=== PATIENT | male | born 1970 | race Caucasian/White ===

== ENCOUNTER 2017-02-17 08:12 | Emergency (ER) | payer OTHER ==
--- NOTE | ~2017-02-17 | CR72 ---
[facility] A Service of [facility] RADIOLOGY TEXT RESULTS PATIENT: GINA FORD LOCATION: [facility] : 74 UNIT #: [id number] AGE: [address]: Norah Teran SEX: M ORDER DR: [id number] [facility] [address] [facility]. [place], [place] [address] [id number] E MR#: [id number] Acc #: [id number] NAME: GINA FORD : 1970 SEX: M STUDY DATE/TIME: 02/17/2017 8:10 UNIT: [facility] ROOM: STUDY DESCRIPTION: CR Chest Single View Portable Attending Physician: Norah Teran Pa-C Ordering Physician: Norah Teran Pa-C Primary Care Physician: Primary Care Physician No MEDICAL IMAGING REPORT This report is preliminary unless electronic signature is present EXAM AP radiograph chest, 02/17/2017 HISTORY Chest pain, short of air that began today. FINDINGS AP radiograph of the chest is presented. Imaged obtained in lordotic projection. The heart is mildly enlarged. This may in part be artifactual and related to AP lordotic projection. Lungs are moderately well inflated. Given projection, there is no clear indication of acute infectious or inflammatory disease, pleural effusion or pneumothorax. No suspicious nodule. The bony structures show no acute abnormality. Mildly tortuous descending thoracic aorta. Dictated by... Justino Dillon M.D. THIS IS AN ELECTRONICALLY VERIFIED REPORT Justino Dillon M.D. at 02/18/2017 5:55 PM [place] TD: 02/17/2017 10:40 JOB #: [id number] MEDICAL IMAGING REPORT Page 1 of 1 COPY
--- NOTE | ~2017-02-17 | EKG ---
PATIENT: GINA FORD UNIT #: [id number] Ventricular Rate: 67 BPM Atrial Rate: 67 BPM P-R Interval: 168 ms QRS Duration: 86 ms Q-T Interval: 392 ms QTC Calculation(Bezet): 414 ms P [place]: 12 degrees Calculated R [place]: 62 degrees Calculated T [place]: -11 degrees Diagnosis Line: Normal sinus rhythm Diagnosis Line: Inferior infarct , age undetermined with Diagnosis Line: repolarization abnormality Diagnosis Line: Abnormal ECG Diagnosis Line: No previous ECGs available Diagnosis Line: Confirmed by JUSTO TATE MD ([id number]) on 02/17/2017 Diagnosis Line: 9:22:21 PM INTERPRETING MD: BEBETO GORDON
[2017-02-17 08:32] LABS: BASOPHIL# 0.1 X10e3 (0-0.3); BASOPHIL% 0.7 % (0-2.5); EOSINOPHIL# 0.3 X10e3 (0-0.7); EOSINOPHIL% 2.6 % (0.0-7.0); HEMOGLOBIN 14.1 gm/dL (13.0-16.0); LYMPHOCYTE# 3.2 X10e3 (1.0-3.5); LYMPHOCYTE% 30.9 % (17.0-45.0); MEAN CELL VOLUME 79.9 FL (83-96); MEAN CORPUSCULAR HEMOGLOBIN 26.2 PG (28-34); MEAN CORPUSCULAR HGB CONC 32.8 g/dL (30-36); MEAN PLATELET VOLUME 10.1 FL (6.5-11.5); MONOCYTE# 0.9 X10e3 (0-1.0); MONOCYTE% 8.6 % (3.0-12.0); NEUTROPHIL# 5.9 X10e3 (1.5-7.1); NEUTROPHIL% 57.2 % (40-75); PLATELET COUNT 203 X10e3 (140-420); RED BLOOD COUNT 5.38 X10e (3.90-5.60); RED CELL DISTRIBUTION WIDTH 13.5 % (11.0-15.5); WHITE BLOOD COUNT 10.3 X10e3 (4.0-10.5)
[2017-02-17 08:34] LABS: DIFF IND NO
[2017-02-17 08:45] LABS: POC - CKMB <1.0 ng/mL (0.0-7.9); POC - TROPONIN <0.05 ng/mL (<=0.05)
[2017-02-17 08:59] LABS: ALBUMIN SERUM 4.1 g/dL (3.5-5.0); BILIRUBIN, DIRECT 0.1 mg/dL (0.0-0.2); BILIRUBIN,INDIRECT 0.6 mg/dL (0.0-0.9); BILIRUBIN,TOTAL 0.7 mg/dL (0.2-2.0); BUN/CREATININE RATIO 17.5; CALCIUM SERUM 8.5 mg/dL (8.4-10.2); CREATININE SERUM 0.8 mg/dL (0.6-1.4); GLOM FILT RATE Estimated 108.7 mL/min (>60); POTASSIUM 3.6 mmol/L (3.5-5.1); PROTEIN TOTAL SERUM 7.5 g/dL (6.0-8.3)
[2017-02-17 09:42] LABS: URINE SOURCE CLEAN CATCH
[2017-02-17 09:49] LABS: URINE APPEARANCE CLEAR; URINE BILIRUBIN NEG (NEG); URINE BLOOD NEG (NEG); URINE COLOR YELLOW; URINE GLUCOSE NEG (NEG); URINE KETONE NEG (NEG); URINE LEUKOCYTE ESTERASE NEG (NEG); URINE NITRATE NEG (NEG); URINE PH 5.5 (5-8); URINE PROTEIN NEG (NEG); URINE SPECIFIC GRAVITY 1.022 (1.003-1.035); URINE UROBILINOGEN 0.2 MG/DL (NEG)
[2017-02-17 09:54] LABS: CULTURE INDICATED? NO
== END 2017-02-17 11:45 | disposition home or self-care (01) ==
LOC: CED 08:12
PROVIDERS: Physician Assistant Medical
DX: R73.9 Hyperglycemia, unspecified (principal); R51 Headache; Z87.442 Personal history of urinary calculi
CPT/HCPCS: 36415; 71010; 80048; 80076; 81003; 82553; 82947; 84484; 85025; 93005; 99284

== ENCOUNTER 2017-02-26 23:50 | Emergency (ER) | payer OTHER ==
--- NOTE | ~2017-02-26 | CT4 ---
[facility] A Service of [facility] RADIOLOGY TEXT RESULTS PATIENT: GINA FORD LOCATION: [facility] : 74 UNIT #: [id number] AGE: [address]: Evelin Paz APRN SEX: M ORDER DR: [id number] [facility] [address] [facility]. [place], [place] [address] [id number] E MR#: [id number] Acc #: [id number] NAME: GINA FORD : 1970 SEX: M STUDY DATE/TIME: 02/27/2017 0110 UNIT: [facility] ROOM: STUDY DESCRIPTION: CT Abd and Pelv Wo Cont Attending Physician: Evelin Paz A.P.R.N. Ordering Physician: Evelin Paz A.P.R.N. Primary Care Physician: No Primary Care Physician MEDICAL IMAGING REPORT This report is preliminary unless electronic signature is present EXAM CT abdomen and pelvis, 02/27 at 0110 hours. INDICATION Left flank pain that started this morning. History of kidney stones. TECHNIQUE Axial noncontrast images were obtained through the abdomen and pelvis. Multiplanar reformats were obtained. This CT exam was performed with one or more of the following radiation dose reduction techniques: automatic exposure control, adjustment of mA and/or kV according to patient size, and iterative reconstruction. COMPARISON STUDIES Comparison is made with 09/24/2016. FINDINGS ABDOMEN: There is some mild atelectasis or scarring in the right middle lobe and lingula. There is a 4.5 mm left lower lobe subpleural nodule. In the absence of risk factors for malignancy, consider chest CT for followup in 12 months. Gallbladder is unremarkable. There is fatty infiltration of the liver. Left nephrostomy tube has been removed. There is a left renal cyst. There is a nonobstructing stone in the lower pole of the left kidney measuring 6 mm in size. No ureteral stones are seen on either side and there is no hydronephrosis. The unenhanced solid organs are otherwise normal. The unopacified GI tract is normal. PELVIS: There are no lower ureteral stones. The bladder is normal. There is no free fluid. The unopacified GI tract, including the appendix, is normal. There are bilateral L5 pars defects. IMPRESSION [facility]. [facility] A Service of [facility] RADIOLOGY TEXT RESULTS PATIENT: GINA FORD LOCATION: [place] : 74 UNIT #: [id number] AGE: [address]: Evelin Paz APRN SEX: M ORDER DR: 1. No ureteral stones on either side and no hydronephrosis. Nonobstructing stone versus potentially a cortical calcification noted lower pole left kidney. 2. Hepatic steatosis. 3. Normal unopacified GI tract, including the appendix. 4. 4.5 mm noncalcified left lower lobe nodule. In the absence of any risk factors for malignancy, I would suggest a followup chest CT in 12 months. Dictated by... Mendez Song Jr., M.D. THIS IS AN ELECTRONICALLY VERIFIED REPORT Mendez Song Jr., M.D. at 02/27/2017 12:37 PM GE/nick TD: 02/27/2017 09:26 JOB #: [id number] MEDICAL IMAGING REPORT Page 1 of 1 COPY
--- NOTE | ~2017-02-26 | CT71 ---
[facility] A Service of [facility] RADIOLOGY TEXT RESULTS PATIENT: GINA FORD LOCATION: [facility] : 74 UNIT #: [id number] AGE: [address]: Evelin Paz APRN SEX: M ORDER DR: [id number] [facility] [address] [facility]. [place], [place] [address] [id number] E MR#: [id number] Acc #: [id number] NAME: GINA FORD : 1970 SEX: M STUDY DATE/TIME: 02/27/2017 0016 UNIT: [facility] ROOM: STUDY DESCRIPTION: CT Head Wo Contrast Attending Physician: Evelin Paz A.P.R.N. Ordering Physician: Evelin Paz A.P.R.N. Primary Care Physician: No Primary Care Physician MEDICAL IMAGING REPORT This report is preliminary unless electronic signature is present EXAM Head CT, 02/27 at 0016 hours. INDICATION Headache that started this morning. Pain rates 5/10. TECHNIQUE Axial noncontrast images were obtained from the skull base to the vertex. This CT exam was performed with one or more of the following radiation dose reduction techniques: automatic exposure control, adjustment of mA and/or kV according to patient size, and iterative reconstruction. FINDINGS Ventricular size and configuration are normal. There is no evidence of acute infarct or hemorrhage. There are no extraaxial fluid collections. No mass lesion or mass effect is seen. There are no skull fractures. IMPRESSION Normal noncontrast head CT. Dictated by... Mendez Song Jr., M.D. THIS IS AN ELECTRONICALLY VERIFIED REPORT Mendez Song Jr., M.D. at 02/27/2017 12:35 PM DANNYK/nick TD: 02/27/2017 08:42 JOB #: [id number] [facility] A Service of [facility] RADIOLOGY TEXT RESULTS PATIENT: GINA FORD [id number] 74 UNIT #: [id number] AGE: [address]: Evelin Paz APRN SEX: M ORDER DR: MEDICAL IMAGING REPORT Page 1 of 1 COPY
[2017-02-27 00:22] LABS: URINE SOURCE CLEAN CATCH
[2017-02-27 00:23] LABS: BASOPHIL# 0.1 X10e3 (0-0.3); BASOPHIL% 0.9 % (0-2.5); EOSINOPHIL# 0.2 X10e3 (0-0.7); EOSINOPHIL% 2.7 % (0.0-7.0); HEMATOCRIT 43.3 % (38.0-50.0); HEMOGLOBIN 14.6 gm/dL (13.0-16.0); LYMPHOCYTE# 3.1 X10e3 (1.0-3.5); LYMPHOCYTE% 34.1 % (17.0-45.0); MEAN CORPUSCULAR HGB CONC 33.8 g/dL (30-36); MONOCYTE# 0.7 X10e3 (0-1.0); MONOCYTE% 8.2 % (3.0-12.0); NEUTROPHIL# 4.9 X10e3 (1.5-7.1); NEUTROPHIL% 54.1 % (40-75); PLATELET COUNT 227 X10e3 (140-420); RED BLOOD COUNT 5.42 X10e (3.90-5.60); RED CELL DISTRIBUTION WIDTH 13.2 % (11.0-15.5); WHITE BLOOD COUNT 9.1 X10e3 (4.0-10.5)
[2017-02-27 00:24] LABS: DIFF IND NO
[2017-02-27 00:28] LABS: URBCS1 AUWI 25-50 /[HPF] (0-2); URINE APPEARANCE CLEAR; URINE BACTERIA AUWI NEG (NEGATIVE); URINE BILIRUBIN NEG (NEG); URINE BLOOD 3+ (NEG); URINE COLOR YELLOW; URINE GLUCOSE 500 MG/DL (NEG); URINE KETONE TRACE (NEG); URINE LEUKOCYTE ESTERASE NEG (NEG); URINE NITRATE NEG (NEG); URINE PROTEIN NEG (NEG); URINE SPECIFIC GRAVITY 1.023 (1.003-1.035); URINE SQUAMOUS EPITHELIAL CELL OCC /[HPF]; URINE UROBILINOGEN 0.2 MG/DL (NEG); UWBCS1 AUWI 0-2 (0-5)
[2017-02-27 00:32] LABS: CULTURE INDICATED? NO
[2017-02-27 00:40] LABS: CALCIUM SERUM 9.7 mg/dL (8.4-10.2); CREATININE SERUM 0.8 mg/dL (0.6-1.4); GLOM FILT RATE Estimated 108.7 mL/min (>60); POTASSIUM 3.5 mmol/L (3.5-5.1)
== END 2017-02-27 02:31 | disposition home or self-care (01) ==
LOC: CFTX 23:50
PROVIDERS: Nurse Practitioner
DX: R51 Headache (principal); R10.9 Unspecified abdominal pain; R03.0 Elevated blood-pressure reading, without diagnosis of hypertension; R31.9 Hematuria, unspecified; Z87.442 Personal history of urinary calculi
CPT/HCPCS: 70450; 74176; 80048; 81003; 82947; 85025; 96372; 99284; J1885

== ENCOUNTER 2017-03-06 05:02 | Emergency (ER) | payer OTHER ==
[2017-03-06 05:25] LABS: URINE SOURCE CLEAN CATCH
[2017-03-06 05:34] LABS: BASOPHIL# 0.1 X10e3 (0-0.3); BASOPHIL% 1.2 % (0-2.5); EOSINOPHIL# 0.3 X10e3 (0-0.7); EOSINOPHIL% 3.2 % (0.0-7.0); HEMATOCRIT 39.5 % (38.0-50.0); HEMOGLOBIN 13.1 gm/dL (13.0-16.0); LYMPHOCYTE# 3.6 X10e3 (1.0-3.5); LYMPHOCYTE% 39.7 % (17.0-45.0); MEAN CELL VOLUME 80.9 FL (83-96); MEAN CORPUSCULAR HEMOGLOBIN 26.7 PG (28-34); MONOCYTE# 0.9 X10e3 (0-1.0); MONOCYTE% 10.3 % (3.0-12.0); NEUTROPHIL# 4.1 X10e3 (1.5-7.1); NEUTROPHIL% 45.6 % (40-75); PLATELET COUNT 202 X10e3 (140-420); RED BLOOD COUNT 4.89 X10e (3.90-5.60); RED CELL DISTRIBUTION WIDTH 13.2 % (11.0-15.5)
[2017-03-06 05:35] LABS: URINE APPEARANCE CLEAR; URINE BILIRUBIN NEG (NEG); URINE BLOOD NEG (NEG); URINE COLOR YELLOW; URINE GLUCOSE NEG (NEG); URINE KETONE NEG (NEG); URINE LEUKOCYTE ESTERASE NEG (NEG); URINE NITRATE NEG (NEG); URINE PH 7.5 (5-8); URINE PROTEIN NEG (NEG); URINE SPECIFIC GRAVITY 1.017 (1.003-1.035)
[2017-03-06 05:36] LABS: CULTURE INDICATED? NO
[2017-03-06 05:37] LABS: DIFF IND NO
[2017-03-06 06:16] LABS: BUN/CREATININE RATIO 28.33; CALCIUM SERUM 8.8 mg/dL (8.4-10.2); CREATININE SERUM 0.6 mg/dL (0.6-1.4); GLOM FILT RATE Estimated 122.3 mL/min (>60); POTASSIUM 3.8 mmol/L (3.5-5.1)
== END 2017-03-06 06:01 | disposition home or self-care (01) ==
LOC: CED 05:02
PROVIDERS: Nurse Practitioner Family
DX: R51 Headache (principal); R10.9 Unspecified abdominal pain; E11.9 Type 2 diabetes mellitus without complications; I10 Essential (primary) hypertension; Z98.890 Other specified postprocedural states
CPT/HCPCS: 36415; 80048; 81003; 82947; 85025; 96361; 96374; 96375; 99284; J0780; J1885; J2405; J2765